=== PATIENT | female | born 1995 | race Caucasian/White ===

== ENCOUNTER 2021-01-03 07:33 | Emergency (ER) | payer OTHER ==
[~2021-01-03] VITALS: Ht 162.6 cm; Wt 59.9 kg
[~2021-01-03 07:33] MED LIST: FIORICET 50-301 EACH PO
[2021-01-03] MEDS ORDERED: ZENATANE40 MG PO (07:43)
[2021-01-03] MEDS ORDERED: TRI-LO-SPRINTE1 EACH PO (07:44)
[2021-01-03] MEDS ORDERED: RELPAX20 MG PO (13:31)
[2021-01-03] MEDS ORDERED: ULTRAM50 MG PO (13:31)
== END 2021-01-03 14:40 ==
LOC: ER 07:33
DX: G43.909 Migraine, unspecified, not intractable, without status migrainosus (principal); K29.70 Gastritis, unspecified, without bleeding; Z03.818 Encounter for observation for suspected exposure to other biological agents ruled out

== ENCOUNTER 2021-01-05 21:46 | Emergency (ER) | payer OTHER ==
[~2021-01-05] VITALS: Ht 157.5 cm; Wt 59.0 kg
[~2021-01-05 21:46] MED LIST changes: +RELPAX20 MG PO; +TRI-LO-SPRINTE1 EACH PO; +ULTRAM50 MG PO; +ZENATANE40 MG PO
== END 2021-01-06 06:45 ==
LOC: ER 21:46
DX: G43.109 Migraine with aura, not intractable, without status migrainosus (principal)